=== PATIENT | female | born 1955 | race Caucasian/White ===

== ENCOUNTER 2016-09-24 10:49 | Emergency (ER) | payer OTHER ==
[~2016-09-24] VITALS: Ht 165.1 cm; Wt 62.6 kg
[2016-09-24] MEDS ORDERED: SODIUM CHLORIDE 0.9% 1,000 ML IV ONE (11:16)
[2016-09-24] MEDS ORDERED: ONDANSETRON 2MG/ML, 2ML ONE (11:29)
[2016-09-24] MEDS ORDERED: MORPHINE SULFATE 4 MG/ML, 1ML IVPush PRN (11:30)
[2016-09-24] MEDS ORDERED: FAMOTIDINE 20 MG/2 ML ONE (11:30)
[2016-09-24] MEDS ORDERED: ONDANSETRON 2MG/ML, 2ML IVPush ONE (11:30)
[2016-09-24] MEDS ORDERED: MORPHINE SULFATE 4 MG/ML, 1ML ONE (11:30)
[2016-09-24] MEDS ORDERED: FAMOTIDINE 20 MG/2 ML IVP ONE (11:30)
[2016-09-24 11:45] LABS: HEMOGLOBIN 16.4 g/dL (11.7-16.4)
[2016-09-24 11:59] LABS: ASPARTATE AMINO TRANSFERASE 22 U/L (15-37); BLOOD UREA NITROGEN 19 mg/dL (7-18)
[2016-09-24 16:04] VITALS: BP 125/81
== END 2016-09-24 15:40 | disposition home or self-care (01) ==
LOC: ED 11:42
DX: A08.4 Viral intestinal infection, unspecified (principal); R10.12 Left upper quadrant pain; F17.210 Nicotine dependence, cigarettes, uncomplicated; J44.9 Chronic obstructive pulmonary disease, unspecified; Z88.0 Allergy status to penicillin
CPT/HCPCS: 36415; 74022; 80053; 81001; 83605; 83690; 85025; 85610; 93005; 96374; 96375; 99285; J2405; J7030; S0028

== ENCOUNTER → 2017-07-25 | Outpatient (CLI) | payer OTHER ==
[~2017-07-25] MED LIST: OMNIPAQUE 350 MG/ML, 75ML BOTTLE ONE
== END ==
LOC: CFH 13:35
PROVIDERS: ATTEND Internal Medicine
DX: J43.9 Emphysema, unspecified (principal); R91.1 Solitary pulmonary nodule
CPT/HCPCS: 71260; 82565; Q9967

== ENCOUNTER → 2019-10-23 | Outpatient (CLI) | payer OTHER ==
[~2019-10-23] MED LIST changes: +ALBU8.5H8 INH; +ALPR0.5T7 PO; +CLIN300C8 PO; +CYCL-259 PO; +NICO-486 TD; -OMNIPAQUE 350 MG/ML, 75ML BOTTLE ONE; +OXYC-306 PO; +OXYC10TA6 PO
[2019-10-23 14:06] LABS: MICROSCOPIC NOT IND
[2019-10-23 14:12] LABS: BASOPHILS # (AUTO) 0.06 x10^3/uL (0-0.1); BASOPHILS % (AUTO) 1 % (0-1); EOSINOPHILS # (AUTO) 0.08 x10^3/uL (0-0.4); EOSINOPHILS % (AUTO) 1 % (1-7); LYMPHOCYTES # (AUTO) 2.36 x10^3/uL (1-3.4); LYMPHOCYTES % (AUTO) 40 % (22-44); MD NO; MEAN CORPUSCULAR HEMOGLOBIN 33.6 pg (27.0-34.8); MEAN CORPUSCULAR HGB CONC 33.5 g/dL (32.4-35.8); MEAN CORPUSCULAR VOLUME 100.4 fL (80-100); MEAN PLATELET VOLUME 8.1 fL (7.4-10.4); MONOCYTES # (AUTO) 0.49 x10^3/uL (0.2-0.8); MONOCYTES % (AUTO) 8 % (2-9); NEUTROPHILS # (AUTO) 2.91 x10^3/uL (1.8-6.8); NEUTROPHILS % (AUTO) 49 % (42-75); PLATELET COUNT 382 x10^3/uL (130-400); RED BLOOD COUNT 3.91 x10^6/uL (3.82-5.3); RED CELL DISTRIBUTION WIDTH 12.9 % (9.6-15.2)
[2019-10-23 14:16] LABS: INTERNATIONAL NORMALIZED RATIO 0.93 (0.93-1.1); PROTHROMBIN TIME 9.8 Seconds (9.6-11.5)
[2019-10-23 14:16] LABS: CULTURE INDICATED? NO
[2019-10-23 14:17] LABS: ALANINE AMINOTRANSFERASE 16 U/L (12-78); ALBUMIN 3.7 g/dL (3.4-5.0); ANION GAP 4 mmol/L (5-15); CALCIUM 9.2 mg/dL (8.5-10.1); CHLORIDE 107 mmol/L (98-107); CREATININE 0.75 mg/dL (0.55-1.02)
[2019-10-23 14:20] LABS: ALKALINE PHOSPHATASE 81 U/L (45-117); BILIRUBIN,TOTAL 0.1 mg/dL (0.2-1.0); TOTAL PROTEIN 7.4 g/dL (6.4-8.2)
== END | disposition home or self-care (01) ==
LOC: STAR 12:35
PROVIDERS: ATTEND Neurological Surgery
DX: Z01.818 Encounter for other preprocedural examination (principal); Z01.811 Encounter for preprocedural respiratory examination; Z01.812 Encounter for preprocedural laboratory examination; J43.9 Emphysema, unspecified; R91.1 Solitary pulmonary nodule; J98.11 Atelectasis; M54.12 Radiculopathy, cervical region; M47.12 Other spondylosis with myelopathy, cervical region; R79.1 Abnormal coagulation profile; R94.31 Abnormal electrocardiogram [ECG] [EKG]
CPT/HCPCS: 36415; 71046; 80053; 81003; 85025; 85610; 85730; 93005

== ENCOUNTER 2019-10-29 05:33 | Inpatient (IN) | payer OTHER ==
[~2019-10-29] VITALS: Ht 162.6 cm; Wt 72.2 kg
[2019-10-29] MEDS ORDERED: LACTATED RINGERS 1,000 ML IV SCH (05:49)
[2019-10-29 05:53] VITALS: BP 111/85
[2019-10-29] MEDS ORDERED: LIDOCAINE-MPF 1%, 2ML INFIL ONE (06:00)
[2019-10-29] MEDS ORDERED: CHLORHEXIDINE 15 ML UDC MM ONE (06:00)
[2019-10-29] MEDS ORDERED: BACITRACIN 50,000 UNIT ONE (06:16)
[2019-10-29] MEDS ORDERED: BUPIVACAINE/PF-EPI 0.5% 1:200K ONE (06:16)
[2019-10-29] MEDS ORDERED: FENTANYL PF 250 MCG/5ML ONE (06:45)
[2019-10-29] MEDS ORDERED: MIDAZOLAM 1 MG/ML, 2ML ONE (06:45)
[2019-10-29] MEDS ORDERED: ONDANSETRON 2MG/ML, 2ML ONE ×2 (07:07→07:38)
[2019-10-29] MEDS ORDERED: LIDOCAINE-MPF 2% ,5ML ONE ×2 (07:38)
[2019-10-29] MEDS ORDERED: CEFAZOLIN 1,000 MG ONE (07:38)
[2019-10-29] MEDS ORDERED: NEOSTIGMINE 1 MG/ML, 10ML ONE (07:38)
[2019-10-29] MEDS ORDERED: DEXAMETHASONE 4 MG/ML, 1ML ONE ×2 (07:38)
[2019-10-29] MEDS ORDERED: ROCURONIUM 10MG/ML,5ML ONE (07:38)
[2019-10-29] MEDS ORDERED: GLYCOPYRROLATE 0.2MG/1ML, 5ML ONE (07:38)
[2019-10-29] MEDS ORDERED: SUCCINYLCHOLINE 20 MG/ML, 10ML ONE (07:38)
[2019-10-29] MEDS ORDERED: PROPOFOL 10 MG/ML, 20ML ONE (07:38)
[2019-10-29] MEDS ORDERED: MEPERIDINE/PF 25MG/ML,1ML IVPush PRN (08:00)
[2019-10-29] MEDS ORDERED: ALBUTEROL SULFATE 2.5 MG/3 ML NPPB PRN ×2 (08:00→11:00)
[2019-10-29] MEDS ORDERED: HYDROmorphone 2 MG/ML, 1ML IVPush PRN ×2 (08:00→10:20)
[2019-10-29] MEDS ORDERED: ACETAMINOPHEN 325 MG TABLET PO PRN (08:00)
[2019-10-29] MEDS ORDERED: hydrALAzine 20 MG/ML, 1ML IV PRN (08:00)
[2019-10-29] MEDS ORDERED: METOPROLOL 1 MG/ML, 5ML IV PRN (08:00)
[2019-10-29] MEDS ORDERED: OXYcodone 5 MG/5 ML ORAL.SOL UDC PO PRN (08:00)
[2019-10-29] MEDS ORDERED: MIDAZOLAM 1 MG/ML, 2ML IV PRN (08:00)
[2019-10-29] MEDS ORDERED: PROMETHAZINE 25 MG/ML, 1ML IV PRN (08:00)
[2019-10-29] MEDS ORDERED: FENTANYL PF 100 MCG/2ML ONE ×2 (08:46→09:20)
[2019-10-29] MEDS ORDERED: OXYcodone 5 MG/5 ML ORAL.SOL UDC ONE (08:46)
[2019-10-29] MEDS: FENTANYL PF 100 MCG/2ML IV PRN ×4 (08:48→09:34)
[2019-10-29] MEDS ORDERED: METHOCARBAMOL 1,000 MG in DEXTROSE 5% 100 ML IV ONE (09:00)
[2019-10-29 10:07] VITALS: BP 123/82
[2019-10-29] MEDS ORDERED: BISACODYL 10 MG SUPP PR PRN (10:30)
[2019-10-29] MEDS ORDERED: HYDROcodone/APAP 5/325 TABLET PO PRN (10:30)
[2019-10-29] MEDS ORDERED: PROMETHAZINE 25 MG/ML, 1ML IM PRN (10:30)
[2019-10-29] MEDS ORDERED: MAGNESIUM HYDROXIDE 8%, 30ML UDC PO PRN (10:30)
[2019-10-29] MEDS ORDERED: DIPHENHYDRAMINE 50 MG/ML, 1ML IVPush PRN (10:30)
[2019-10-29] MEDS ORDERED: ONDANSETRON 2MG/ML, 2ML IV PRN (10:30)
[2019-10-29] MEDS: DEXAMETHASONE 4 MG/ML, 1ML IV SCH ×3 (10:44→22:43)
[2019-10-29] MEDS: CLINDAMYCIN 300 MG CAPSULE PO SCH ×2 (10:45→16:44)
[2019-10-29] MEDS ORDERED: NICOTINE 21 MG/24 HR PATCH.TD24 ONE (10:58)
[2019-10-29] MEDS ORDERED: [UNRECOGNIZED DRUG - REMARK] MC SCH (11:00)
[2019-10-29] MEDS ORDERED: CYCLOBENZAPRINE 10 MG TABLET PO PRN (11:00)
[2019-10-29] MEDS: D5%-0.9% NACL+KCL 20MEQ 1,000 ML IV SCH ×2 (11:05→21:41)
[2019-10-29] MEDS: NICOTINE 21 MG/24 HR PATCH.TD24 TD SCH (11:05)
[2019-10-29 13:10] VITALS: BP 121/58
[2019-10-29] MEDS: HYDROcodone/APAP 10/325 MG TABLET PO PRN ×3 (14:34→22:44)
[2019-10-29] MEDS: CEFAZOLIN PMX 1GM/50ML 50 ML IVPB SCH (16:12)
[2019-10-29] MEDS: METHOCARBAMOL 750 MG TABLET PO SCH (16:52)
[2019-10-29 20:45] VITALS: BP 134/89
[2019-10-29] MEDS ORDERED: ZOLPIDEM 5MG TABLET PO PRN (21:00)
[2019-10-30] MEDS: CEFAZOLIN PMX 1GM/50ML 50 ML IVPB SCH (00:55)
[2019-10-30] MEDS: METHOCARBAMOL 750 MG TABLET PO SCH ×2 (00:55→10:32)
[2019-10-30 02:00] VITALS: BP 135/79
[2019-10-30] MEDS: CLINDAMYCIN 300 MG CAPSULE PO SCH ×2 (03:00→10:32)
[2019-10-30] MEDS: DEXAMETHASONE 4 MG/ML, 1ML IV SCH ×2 (05:30→10:32)
[2019-10-30] MEDS: D5%-0.9% NACL+KCL 20MEQ 1,000 ML IV SCH (06:30)
[2019-10-30] MEDS: HYDROcodone/APAP 10/325 MG TABLET PO PRN ×2 (06:32→10:32)
[2019-10-30 06:35] VITALS: BP 136/85
[2019-10-30] MEDS: NICOTINE 21 MG/24 HR PATCH.TD24 TD SCH (07:39)
[2019-10-30] MEDS ORDERED: SENNA/DOCUSATE TABLET PO SCH (09:00)
[2019-10-30] MEDS ORDERED: OXYC-307 PO (09:44)
[2019-10-30] MEDS ORDERED: METH750T87 PO (09:44)
[2019-10-30] MEDS ORDERED: METH4TAB2 PO (09:44)
== END 2019-10-30 12:35 | disposition home or self-care (01) | DRG 472 ==
LOC: OUT 05:33 → EDSTATUS 07:00 → 4NE 09:58 → OUT 10:52
PROVIDERS: ADMIT Neurological Surgery; ATTEND Neurological Surgery
PROC: 0RG10A0 Fusion of Cervical Vertebral Joint with Interbody Fusion Device, Anterior Approach, Anterior Column, Open Approach (ICD-10-PCS; 2019-10-29)
PROC: 0RG1070 Fusion of Cervical Vertebral Joint with Autologous Tissue Substitute, Anterior Approach, Anterior Column, Open Approach (ICD-10-PCS; principal; 2019-10-29 07:00)
DX: M43.12 Spondylolisthesis, cervical region (principal); G95.89 Other specified diseases of spinal cord; M48.04 Spinal stenosis, thoracic region; M54.2 Cervicalgia
CPT/HCPCS: 72040; J3490; C1713; G0378; J0690; J1100; J2250; J2405; J2704; J2710; J3010; C1762; C1889; J0330; J2800; J3480; J7120